=== PATIENT | female | born 2005 | race Caucasian/White ===

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

== ENCOUNTER 2024-01-19 08:22 | Emergency (ER) | payer OTHER, SELFPAY ==
[2024-01-19 08:37] VITALS: BP 153/72; PULSE 98; RESP 16; TEMP 36.8; O2SAT 96; BMI 60.2
--- NOTE | 2024-01-19 08:45 | EXP.UTC ---
Discharge Plan Disposition Patient Disposition: Home, Self-Care Condition: Good Prescriptions Prescriptions: New cefdinir 300 mg capsule 300 mg PO Q12H 10 Days Qty: 20 0RF cetirizine [Zyrtec] 10 mg tablet 10 mg PO DAILY Qty: 30 2RF No Action lisinopril 10 mg tablet 10 mg PO DAILY Qty: 90 1RF Wegovy 0.25 mg/0.5 mL pen injector 0.25 mg SQ WEEKLY Qty: 2 0RF Rx Instructions: administer weeks 1 through 4 of therapy Referrals Follow up/Referrals: Dereck Ramos DO [Primary Care Provider] - See instructions Activity Restrictions/Add. Instructions Additional Instructions/Restrictions: Take medication as prescribed. Follow up in a week with your primary care provider (PCP). Monitor blood pressure and take readings to your PCP at your visit in a week. Clinical Impressions Clinical Impression: Bilateral otitis media with spontaneous rupture of eardrum, Seasonal allergies Instructions Patient Instructions: DI for Middle Ear Infection-Adult, DI for Viral Upper Respiratory Infection -- Adult Print Language Print Language: Cambodian Discharge ED Provider: Anika Hendrickson [facility] General Stated complaint: sore throat, left ear pain Mode of Arrival: Ambulatory Source of Information: Patient Limitations: No Limitations Time Seen by Provider: 01/19/24 08:39 Description of Symptoms (Recalled from Triage Doc. by RN): Patient reports sore throat and left ear pain. HEENT Symptoms (Recalled from RN notes): Yes Resp Symptoms (Recalled from RN notes): No Skin Symptoms (Recalled from RN notes): No MS Symptoms (Recalled from RN notes): No Functional Status (Recalled from RN notes): wnl Related Data Previous Rx's ?Medication ?Instructions ?Recorded lisinopril 10 mg tablet 10 mg PO DAILY #90 tabs 09/10/23 semaglutide (weight loss) 0.25 0.25 mg (0.5 mL) SQ WEEKLY #2 mL 09/10/23 mg/0.5 mL subcutaneous pen injector (Wegovy) cefdinir 300 mg capsule 300 mg PO Q12H 10 days #20 caps 01/19/24 cetirizine 10 mg tablet (Zyrtec) 10 mg PO DAILY #30 tabs 01/19/24 Allergies Allergy/AdvReac Type Severity Reaction Status Date / Time No Known Allergies Allergy Verified 09/10/23 15:48 Worker's Comp Is this a Worker's Comp case?: No [facility] Disclaimer: The information contained in this section may have been updated after the patient was seen, as this information can be updated by other users. Medical History Obesity Hypothyroidism Surgical History History of tonsillectomy Social History Smoking Status: Never smoker alcohol intake: never substance use type: denies use current occupational status: other Travel in the last 8 weeks: None ROS Obtained: Yes All systems reviewed & no additional complaints except as documented Constitutional Constitutional: Reports system reviewed and no additional complaints, except as documented and Reports malaise Eyes Eyes: Reports system reviewed and no additional complaints, except as documented ENT Ears, Nose, Mouth, and Throat: Reports system reviewed and no additional complaints, except as documented, Reports ear discharge, Reports otalgia, Reports nasal congestion and Reports nasal discharge Cardiovascular Cardiovascular: Reports system reviewed and no additional complaints, except as documented Respiratory Respiratory: Reports system reviewed and no additional complaints, except as documented and Reports non-productive cough Gastrointestinal Gastrointestingal: Reports system reviewed and no additional complaints, except as documented Genitourinary Female Genitourinary: Reports system reviewed and no additional complaints, except as documented Musculoskeletal Musculoskeletal: Reports system reviewed and no additional complaints, except as documented Integumentary/Breasts Skin/Breast: Reports system reviewed and no additional complaints, except as documented Neurologic Neurologic: Reports system reviewed and no additional complaints, except as documented Endocrine Endocrine: Reports system reviewed and no additional complaints, except as documented Hematologic/Lymphatic Henatologic/Lymphatic: Reports system reviewed and no additional complaints, except as documented Allergic/Immunologic Allergic/Immunologic: Reports system reviewed and no additional complaints, except as documented Physical Exam General General appearance: alert and anxious Head Head exam: atraumatic and normocephalic Eye Eye exam: Present normal appearance ENT ENT exam: Present mucous membranes moist Expanded ENT Exam External ear exam: Present pain with movement TM/Canal exam: Right TM: canal tenderness and Bilateral TM: erythema, perforation and canal discharge (pus noted in both canals) Nasal speculum exam: Bilateral: purulent discharge Mouth exam: Present normal external inspection Teeth exam: Present normal inspection Throat exam: Present normal inspection Neck Neck exam: Present normal inspection Chest Chest inspection: Present normal inspection and symmetric chest wall rise Respiratory Respiratory exam: Present normal lung sounds bilaterally Cardiovascular Cardiovascular exam: Present normal heart sounds Abdominal Exam Abdominal exam: Present soft and normal bowel sounds Extremities Exam Extremities exam: Present normal inspection Back Exam Back exam: Present normal inspection Neurological Exam Neurological exam: Present alert and oriented X3 Psychiatric Psychiatric exam: Present normal affect and anxious Skin Skin exam: Present warm, dry and intact Lymphatic Lymphatic Findings: no adenopathy Medical Decision Making Medical Records Screening: Per USPSTF and CDC recommendations, given the prevalence of disease in our region, it is our hospital?s policy to screen for HIV and viral Hepatitis for all patients aged 18 and over and those with ongoing risk factors. Jose De Jesus Inquiry Pt receiving controlled substance: No Jose De Jesus was queried for this patient: No Vital Signs: 01/19/24 08:37 Temperature 98.3 F Temperature Source Oral Pulse Rate [Radial] 98 H Respiratory Rate 16 Blood Pressure [Right Arm] 153/72 H Blood Pressure Mean [Right Arm] 99 Blood Pressure Source [Right Arm] Automatic Cuff Blood Pressure Position [Right Arm] Sitting 02 Sat by Pulse Oximetry 96 Oxygen Delivery Method Room Air
[2024-01-19 08:55] VITALS: BP 153/72; PULSE 98; RESP 16; TEMP 36.8; O2SAT 96
== END 2024-01-19 08:56 | disposition home or self-care (01) ==
PROVIDERS: Emergency Provider Nurse Practitioner Family; PCP Internal Medicine
DX: H66.93 Otitis media, unspecified, bilateral (principal); H72.93 Unspecified perforation of tympanic membrane, bilateral; R07.0 Pain in throat
CPT/HCPCS: 99212; 99214; G0463

== ENCOUNTER 2024-07-22 16:16 | Outpatient (CLI) | payer OTHER, SELFPAY | END 2024-07-22 23:59 | disposition home or self-care (01) | LOC: LAB.DROPOF 16:16 | PROVIDERS: PCP Nurse Practitioner; Visit Provider Nurse Practitioner | DX: H65.01 Acute serous otitis media, right ear (principal); H74.01 Tympanosclerosis, right ear; H92.11 Otorrhea, right ear | CPT/HCPCS: 87070; 87077; 87102; 87186; 87206 ==

== ENCOUNTER 2024-10-06 16:17 | Emergency (ER) | payer OTHER, SELFPAY ==
[2024-10-06 16:28] VITALS: BP 141/96; PULSE 76; RESP 18; TEMP 36.9; O2SAT 100; BMI 58.1
--- NOTE | 2024-10-06 16:29 | HMH.EDGENADL ---
Discharge Plan Disposition Patient Disposition: Home, Self-Care Condition: Good Prescriptions Prescriptions: New ondansetron 4 mg tablet,disintegrating 4 mg PO Q6H PRN (Reason: nausea and vomiting) Qty: 10 0RF No Action ondansetron 4 mg tablet,disintegrating 4 mg PO Q8H PRN (Reason: nausea and vomiting) Qty: 7 0RF Referrals Follow up/Referrals: Provider,Debbie Test [Primary Care Provider, Unknown] - See instructions Activity Restrictions/Add. Instructions Additional Instructions/Restrictions: Please follow-up with your family physician, please take your medication as prescribed, recommend ibuprofen and Tylenol as needed for symptomatic relief, utilize Zofran as needed for nausea. Please return to the emergency department any worsening signs or symptoms. Clinical Impressions Clinical Impression: Diarrhea, Abdominal pain Instructions Patient Instructions: DI for Acute Abdominal Pain Print Language Print Language: Icelandic Discharge ED Provider: Osvaldo Hansen General Adult HPI <MARTÍNEZ Mobley - Last Filed: 10/06/24 17:42> General Chief complaint: Abdominal Pain Stated complaint: Abdominal Pain,nausea Time Seen by Provider: 10/06/24 16:24 Mode of Arrival: Ambulatory Limitations: No Limitations History of Present Illness HPI narrative: 19-year-old female presents to the emergency department with abdominal cramping, nausea, no vomiting, and some diarrhea for 6 days, diarrhea has been subsided since 10/03/2024, she has had formed stools, no hematuria, no melena no hematochezia, no hematemesis, no hematuria, no urinary type symptomatology, no fever no chills no chest pain no shortness of breath no cough congestion no sore throat, no vaginal symptomatology. 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 Onset (ago): day(s) Related Data Previous Rx's ?Medication ?Instructions ?Recorded ondansetron 4 mg disintegrating 4 mg PO Q8H PRN nausea and 10/05/24 tablet vomiting #7 tabs ondansetron 4 mg disintegrating 4 mg PO Q6H PRN nausea and 10/06/24 tablet vomiting #10 tabs Allergies Allergy/AdvReac Type Severity Reaction Status Date / Time No Known Allergies Allergy Verified 10/05/24 08:17 [facility] <MARTÍNEZ Mobley - Last Filed: 10/06/24 17:42> [facility] Disclaimer: The information contained in this section may have been updated after the patient was seen, as this information can be updated by other users. Medical History Otitis externa due to Pseudomonas aeruginosa Right ear Otitis externa of right ear Infection of right ear Drainage from right ear History of chronic ear drainage Obesity Hypothyroidism Surgical History History of tonsillectomy Family History Family/Other No significant family history Social History Smoking Status: Never smoker alcohol intake: never substance use type: denies use current occupational status: other Travel in the last 8 weeks?: None Have you lived/traveled outside US in past 30 days?: No Contact w/someone who lives/traveled outside US past 30 days?: No Exposure to someone with infectious disease in past 14 days?: No Do you have a fever (greater than 100.4 F or 38 C)?: No Have you tested positive for COVID-19?: No Exposed to someone with COVID-19 in past 14 days?: No Do you have a sore throat?: No Do you have a cough?: No Do you have any weakness?: No Do you have any diarrhea?: No Are you experiencing any unusual bleeding?: No Do you have any muscle aches/pain?: No Do you have any abdominal pain?: No Are you experiencing loss of taste or smell?: No Other Medical History Have you received the Pneumonia Vaccine: No <MARTÍNEZ Mobley - Last Filed: 10/06/24 17:42> ROS Obtained: Yes All systems reviewed & no additional complaints except as documented Physical Exam <MARTÍNEZ Mobley - Last Filed: 10/06/24 17:42> General General appearance: alert and in no apparent distress Head Head exam: atraumatic and normocephalic Eye Eye exam: Present PERRL and EOMI ENT ENT exam: Present mucous membranes moist Neck Neck exam: Present normal inspection Chest Chest inspection: Present normal inspection and symmetric chest wall rise Respiratory Respiratory exam: Present normal lung sounds bilaterally; Absent respiratory distress Cardiovascular Cardiovascular exam: Present regular rate and normal rhythm Abdominal Exam Abdominal exam: Present soft; Absent tenderness, guarding, rebound or rigidity Extremities Exam Extremities exam: Present normal inspection Neurological Exam Neurological exam: Present alert and oriented X3 Psychiatric Psychiatric exam: Present normal affect Skin Skin exam: Present warm and dry Medical Decision Making <MARTÍNEZ Mobley - Last Filed: 10/06/24 17:42> Medical Records Medical records reviewed: Yes I reviewed the patient's medical records. Screening: Per USPSTF and CDC recommendations, given the prevalence of disease in our region, it is our hospital?s policy to screen for HIV and viral Hepatitis for all patients aged 18 and over and those with ongoing risk factors. Jose De Jesus Inquiry Pt receiving controlled substance: No Jose De Jesus was queried for this patient: No Vital Signs: 10/06/24 16:28 10/06/24 17:01 10/06/24 17:31 Temperature 98.5 F Temperature Source Oral Pulse Rate 86 81 Pulse Rate [Right Brachial] 76 Respiratory Rate 18 Blood Pressure 123/63 104/87 L Blood Pressure [Right Arm] 141/96 H Blood Pressure Mean 83 90 Blood Pressure Mean [Right Arm] 111 Blood Pressure Source Blood Pressure Source [Right Arm] Automatic Cuff Blood Pressure Position Blood Pressure Position [Right Arm] Sitting 02 Sat by Pulse Oximetry 100 98 98 Oxygen Delivery Method Room Air 10/06/24 17:48 Temperature 98.4 F Temperature Source Oral Pulse Rate 77 Pulse Rate [Right Brachial] Respiratory Rate 18 Blood Pressure 104/87 L Blood Pressure [Right Arm] Blood Pressure Mean Blood Pressure Mean [Right Arm] Blood Pressure Source Automatic Cuff Blood Pressure Source [Right Arm] Blood Pressure Position Sitting Blood Pressure Position [Right Arm] 02 Sat by Pulse Oximetry Oxygen Delivery Method Room Air Lab Data Lab results reviewed: Yes I reviewed the patient's lab results. Lab Results 10/06/24 14:35: WBC 9.2, RBC 4.52, Hgb 13.9, Hct 40.2, MCV 88.9, MCH 30.8, MCHC 34.6, RDW 13.2, Plt Count 374, MPV 9.9, Neut % (Auto) 54.0, Lymph % (Auto) 36.9, Shoshone % (Auto) 6.9, Eos % (Auto) 1.0, Baso % (Auto) 0.8, Neut # (Auto) 4.9, Lymph # (Auto) 3.4, Shoshone # (Auto) 0.6, Eos # (Auto) 0.1, Baso # (Auto) 0.1, Sodium 139, Potassium 3.8, Chloride 105, Carbon Dioxide 25, Anion Gap 12.8, BUN 9, Creatinine 0.70, Estimated Creat Clear 120, Estimated GFR 107, Est GFR ( Amer) 129, Glucose 100, Calcium 9.3, Total Bilirubin 1.4 H, AST 51 H, ALT 53, Alkaline Phosphatase 69, Total Protein 8.8 H, Albumin 5.1 H, Globulin 3.7 H, Albumin/Globulin Ratio 1.4, Lipase 56 10/06/24 16:20: Urine Color Yellow, Urine Appearance Clear, Urine pH 6.0, Ur Specific Cham[place] >= 1.030, Urine Protein Negative, Urine Glucose (UA) Negative, Urine Ketones Negative, Urine Blood Negative, Urine Nitrate Negative, Urine Bilirubin Negative, Urine Urobilinogen 0.2, Ur Leukocyte Esterase Negative, Urine RBC Occasional, Urine WBC Occasional, Ur Squamous Epith Cells 10-20, Urine Bacteria Trace, Urine HCG, Qual Negative 10/06/24 16:55: Lactate 0.9 10/06/24 14:35 10/06/24 14:35 Orders (Tests/Meds): ED MEDICATIONS Discontinued Medications Generic Name Dose Route Start Last Admin Trade Name Naifq PRN Reason Stop Dose Admin Ondansetron HCl 4 mg 10/06/24 16:27 10/06/24 16:37 Ondansetron 4mg/2ml Vial IV 10/06/24 16:28 4 mg ONCE ONE Administration ORDERS Category Date Time Status Complete Blood Count Auto Diff Stat Lab 10/06/24 14:35 Completed Comprehensive Metabolic Panel Stat Lab 10/06/24 14:35 Completed HIV Combo Stat Lab 10/06/24 14:35 Received Hepatitis C Ab Qual. W/ RFX Stat Lab 10/06/24 14:35 Received Lactic Acid Stat Lab 10/06/24 16:55 Completed Lipase Stat Lab 10/06/24 14:35 Completed Urinalysis and Microscopic Stat Lab 10/06/24 16:20 Completed Urine , HCG Qual. Stat Lab 10/06/24 16:20 Completed Medical Decision Narrative: 19-year-old female presents to the emergency department with abdominal cramping, nausea no vomiting and diarrhea that is since subsided, see HPI for detail past medical history, differential diagnosis include but not limited to, gastroenteritis, acute UTI, ileus, physiologic , gastritis, GERD, constipation, musculoskeletal pain among others. I discussed patient case with attending physician Dr. Hansen Will obtain basic laboratory studies lactic acid level lipase, UA, hCG qualitative, will give 4 mg IV Zofran for nausea Urine hCG is negative, negative leukocyte esterase, occasional RBCs, WBCs, 10-20 epithelial cells, trace bacteria, no nitrites CBC unremarkable CMP is notable for minimal bilirubin elevation 1.4, AST is minimally elevated 51, lipase and lactic acid level within normal limits otherwise unremarkable CMP I discussed the results with the patient at the bedside, patient most likely had gastroenteritis/other diarrheal illness, diarrhea is improved, patient has remained hemodynamically stable, afebrile, stools have returned to baseline, will prescribe p.o. Zofran 4 mg as needed for nausea, unremarkable/benign exam normal exam this time, no need for imaging, patient was given strict ED return precautions, recommend ibuprofen Tylenol, good p.o. intake, patient voiced understanding agree with current treatment plan/discharge plan will follow-up with PCP. <Osvaldo Hansen MD - Last Filed: 10/06/24 17:57> Vital Signs: 10/06/24 16:28 10/06/24 17:01 10/06/24 17:31 Temperature 98.5 F Temperature Source Oral Pulse Rate 86 81 Pulse Rate [Right Brachial] 76 Respiratory Rate 18 Blood Pressure 123/63 104/87 L Blood Pressure [Right Arm] 141/96 H Blood Pressure Mean 83 90 Blood Pressure Mean [Right Arm] 111 Blood Pressure Source Blood Pressure Source [Right Arm] Automatic Cuff Blood Pressure Position Blood Pressure Position [Right Arm] Sitting 02 Sat by Pulse Oximetry 100 98 98 Oxygen Delivery Method Room Air 10/06/24 17:48 Temperature 98.4 F Temperature Source Oral Pulse Rate 77 Pulse Rate [Right Brachial] Respiratory Rate 18 Blood Pressure 104/87 L Blood Pressure [Right Arm] Blood Pressure Mean Blood Pressure Mean [Right Arm] Blood Pressure Source Automatic Cuff Blood Pressure Source [Right Arm] Blood Pressure Position Sitting Blood Pressure Position [Right Arm] 02 Sat by Pulse Oximetry Oxygen Delivery Method Room Air Lab Data Lab Results 10/06/24 14:35: WBC 9.2, RBC 4.52, Hgb 13.9, Hct 40.2, MCV 88.9, MCH 30.8, MCHC 34.6, RDW 13.2, Plt Count 374, MPV 9.9, Neut % (Auto) 54.0, Lymph % (Auto) 36.9, Shoshone % (Auto) 6.9, Eos % (Auto) 1.0, Baso % (Auto) 0.8, Neut # (Auto) 4.9, Lymph # (Auto) 3.4, Shoshone # (Auto) 0.6, Eos # (Auto) 0.1, Baso # (Auto) 0.1, Sodium 139, Potassium 3.8, Chloride 105, Carbon Dioxide 25, Anion Gap 12.8, BUN 9, Creatinine 0.70, Estimated Creat Clear 120, Estimated GFR 107, Est GFR ( Amer) 129, Glucose 100, Calcium 9.3, Total Bilirubin 1.4 H, AST 51 H, ALT 53, Alkaline Phosphatase 69, Total Protein 8.8 H, Albumin 5.1 H, Globulin 3.7 H, Albumin/Globulin Ratio 1.4, Lipase 56 10/06/24 16:20: Urine Color Yellow, Urine Appearance Clear, Urine pH 6.0, Ur Specific [place] >= 1.030, Urine Protein Negative, Urine Glucose (UA) Negative, Urine Ketones Negative, Urine Blood Negative, Urine Nitrate Negative, Urine Bilirubin Negative, Urine Urobilinogen 0.2, Ur Leukocyte Esterase Negative, Urine RBC Occasional, Urine WBC Occasional, Ur Squamous Epith Cells 10-20, Urine Bacteria Trace, Urine HCG, Qual Negative 10/06/24 16:55: Lactate 0.9 Orders (Tests/Meds): ED MEDICATIONS Discontinued Medications Generic Name Dose Route Start Last Admin Trade Name Freq PRN Reason Stop Dose Admin Ondansetron HCl 4 mg 10/06/24 16:27 10/06/24 16:37 Ondansetron 4mg/2ml Vial IV 10/06/24 16:28 4 mg ONCE ONE Administration ORDERS Category Date Time Status Complete Blood Count Auto Diff Stat Lab 10/06/24 14:35 Completed Comprehensive Metabolic Panel Stat Lab 10/06/24 14:35 Completed HIV Combo Stat Lab 10/06/24 14:35 Received Hepatitis C Ab Qual. W/ RFX Stat Lab 10/06/24 14:35 Received Lactic Acid Stat Lab 10/06/24 16:55 Completed Lipase Stat Lab 10/06/24 14:35 Completed Urinalysis and Microscopic Stat Lab 10/06/24 16:20 Completed Urine , HCG Qual. Stat Lab 10/06/24 16:20 Completed Medical Decision Narrative: 19-year-old female presents to the emergency department with abdominal cramping, nausea no vomiting and diarrhea that is since subsided, see HPI for detail past medical history, differential diagnosis include but not limited to, gastroenteritis, acute UTI, ileus, physiologic , gastritis, GERD, constipation, musculoskeletal pain among others. I discussed patient case with attending physician Dr. Hansen Will obtain basic laboratory studies lactic acid level lipase, UA, hCG qualitative, will give 4 mg IV Zofran for nausea Urine hCG is negative, negative leukocyte esterase, occasional RBCs, WBCs, 10-20 epithelial cells, trace bacteria, no nitrites CBC unremarkable CMP is notable for minimal bilirubin elevation 1.4, AST is minimally elevated 51, lipase and lactic acid level within normal limits otherwise unremarkable CMP I discussed the results with the patient at the bedside, patient most likely had gastroenteritis/other diarrheal illness, diarrhea is improved, patient has remained hemodynamically stable, afebrile, stools have returned to baseline, will prescribe p.o. Zofran 4 mg as needed for nausea, unremarkable/benign exam normal exam this time, no need for imaging, patient was given strict ED return precautions, recommend ibuprofen Tylenol, good p.o. intake, patient voiced understanding agree with current treatment plan/discharge plan will follow-up with PCP. I was consulted by the [facility], and we discussed the complexity of the problems being addressed. I approved the treatment and management plan for this patient's care in the Emergency Department, thus performing a substantive portion of the medical decision making. Osvaldo Hansen MD Critical Care <MARTÍNEZ Mobley - Last Filed: 10/06/24 17:42> Critical Care Time Critical Care Time: No
[2024-10-06 16:34] LABS: Microscopic, Urine URINE MICROSCOPIC (MICROSCOPIC)
[2024-10-06] MEDS: ONDANSETRON 4MG/2ML VIAL 4 MG IV (16:37)
[2024-10-06 16:39] LABS: Appearance,Urine CLEAR (Clear); Bilirubin,Urine Negative (Negative); Blood, Urine Negative (Negative); Color,Urine YELLOW (Yellow); Glucose,Urine (UA) Negative (Negative); Ketones,Urine Negative (Negative); Leukocyte Esterase,Urine Negative (Negative); Nitrate,Urine Negative (Negative); Protein,Urine Negative (Negative); Specific Gravity, Urine >= 1.030 (1.005-1.030); Urobilinogen,Urine 0.2 EU/dl (0.2)
[2024-10-06 16:44] LABS: Urine Pregnancy, HCG Qual. Negative (Negative)
[2024-10-06 16:55] LABS: Bacteria,Urine Trace /lpf; RBC,Urine Occasional #/hpf (0-3); WBC,Urine Occasional #/hpf (0-3)
[2024-10-06 16:59] LABS: Basophils # 0.1 K/mm3 (0-0.2); Basophils % 0.8 % (0.1-2.0); Eosinophils # 0.1 Kmm3 (0.0-0.4); Hematocrit 40.2 % (37.0-47.0); Hemoglobin 13.9 g/dL (12.2-16.2); Immature Granulocytes # 0.04 10^3uL; Immature Granulocytes % 0.4 %; Lymphocytes # 3.4 K/mm3 (0.7-4.5); Lymphocytes % 36.9 % (10-50); Mean Corpuscular HGB Conc 34.6 g/dL (31.8-35.4); Mean Corpuscular Hemoglobin 30.8 pg (27.0-31.2); Mean Corpuscular Volume 88.9 fl (81-99); Mean Platelet Volume 9.9 fl (7.4-10.4); Monocytes # 0.6 K/mm3 (0.1-1.0); Monocytes % 6.9 % (1.7-9.3); Neutrophils # 4.9 K/mm3 (1.8-7.8); Nucleated Red Blood Cells # 0 10^3/uL; Nucleated Red Blood Cells % 0 %; Platelet Count 374 K/mm3 (142-424); Red Blood Count 4.52 M/mm3 (4.20-5.40); Red Cell Distribution Width 13.2 % (11.5-17.5); Red Cell Distribution Width-SD 43.2 fL; White Blood Count 9.2 K/mm3 (4.5-13.0)
[2024-10-06 17:01] VITALS: BP 123/63; PULSE 86; O2SAT 98
[2024-10-06 17:14] LABS: Albumin Level 5.1 g/dl (3.5-5.0); Chloride 105 mmol/L (98-107); Potassium 3.8 mmoL/L (3.5-5.1); Sodium 139 mmol/L (136-145)
[2024-10-06 17:16] LABS: Lactic Acid 0.9 mmol/L (0.7-2.1)
[2024-10-06 17:16] LABS: Blood Urea Nitrogen 9 mg/dl (7-17); Creatinine Clearance Estimated 120 mL/min (50-200); Estimated Glomerular Filt Rate 107 ml/min (>60); GFR (African American) 129 ML/MIN (>60)
[2024-10-06 17:17] LABS: Alanine Aminotransferase 53 U/L (12-78); Albumin/Globulin Ratio 1.4 (1.1-1.8); Alkaline Phosphatase 69 U/L (38-126); Anion Gap 12.8 mEq/L (5-15); Aspartate Amino Transferase 51 U/L (14-36); Bilirubin,Total 1.4 mg/dl (0.2-1.3); Calcium 9.3 mg/dl (8.4-10.2); Carbon Dioxide 25 mmol/L (22.0-30.0); Globulin 3.7 g/dL (1.3-3.2); Glucose 100 mg/dl (74-100); Lipase 56 U/L (23-300); Total Protein,Serum 8.8 g/dl (6.3-8.2)
[2024-10-06 17:31] VITALS: BP 104/87; PULSE 81; O2SAT 98
[2024-10-06 17:48] VITALS: BP 104/87; PULSE 77; RESP 18; TEMP 36.9; O2SAT 99
[2024-10-06 18:31] LABS: HIV Combo NEGATIVE (Negative)
[2024-10-06 18:39] LABS: Hepatitis C Ab Qual. W/ RFX NEGATIVE (Negative)
== END 2024-10-06 17:49 | disposition home or self-care (01) ==
PROVIDERS: Physician Assistant; Emergency Provider Emergency Medicine
DX: R10.9 Unspecified abdominal pain (principal); R11.0 Nausea; R19.7 Diarrhea, unspecified; Z11.59 Encounter for screening for other viral diseases; Z11.4 Encounter for screening for human immunodeficiency virus [HIV]
CPT/HCPCS: 80053; 80074; 81001; 81025; 83605; 83690; 85025; 87389; 96374; 99284; J2405

== ENCOUNTER 2024-10-10 08:59 | Outpatient (CLI) | payer OTHER, SELFPAY ==
--- NOTE | 2024-10-10 09:00 | US_ITS ---
FINAL REPORT TECHNIQUE: Sonographic images of the right upper quadrant were obtained. CLINICAL HISTORY: ruq pain COMPARISON: None FINDINGS: PANCREAS: Unremarkable. LIVER: Somewhat limited evaluation, but there is fatty infiltration. No focal hepatic lesion. No intrahepatic biliary ductal dilatation. GALLBLADDER: No gallstones. No gallbladder wall thickening or pericholecystic fluid. COMMON DUCT: 3 mm. Normal for age. RIGHT KIDNEY: The right kidney measures 10.5 cm. There is no hydronephrosis, mass, or stone. FREE FLUID: None. IMPRESSION: Fatty liver. Otherwise, unremarkable ultrasound of the right upper quadrant. Reviewed, Interpreted and Dictated by Susie Huerta MD Transcribed by Natalie Kiser Authenticated and [facility]
== END 2024-10-10 23:59 | disposition home or self-care (01) ==
LOC: RAD 09:00
PROVIDERS: PCP Family Medicine; Visit Provider Family Medicine
DX: K76.0 Fatty (change of) liver, not elsewhere classified (principal); R10.11 Right upper quadrant pain
CPT/HCPCS: 76705

== ENCOUNTER 2024-11-16 10:42 | Emergency (ER) | payer OTHER, SELFPAY ==
[2024-11-16 10:50] VITALS: BP 140/89; PULSE 89; RESP 19; O2SAT 98
--- NOTE | 2024-11-16 10:51 | ECG_ITS ---
APPROVED REPORT Exam: Resting ECG HR:85 bpm ECG Measurements Heart Rate 85 AXES DE 164 P 29 QRSd 105 QRS 44 QT 356 T 11 QTc 398 Conclusion SINUS RHYTHM NORMAL ECG Electronically signed by : JAKE STEVENS, 11/17/2024 18:00:18
[2024-11-16 10:53] VITALS: BP 140/89; PULSE 86; RESP 19; TEMP 36.8; O2SAT 98; BMI 54.8
[2024-11-16 11:01] VITALS: BP 120/76; PULSE 85; RESP 19; O2SAT 96
[2024-11-16 11:01] LABS: Microscopic, Urine URINE MICROSCOPIC (MICROSCOPIC)
[2024-11-16 11:06] LABS: Bilirubin,Urine Negative (Negative); Color,Urine YELLOW (Yellow); Glucose,Urine (UA) Negative (Negative); Ketones,Urine Negative (Negative); Leukocyte Esterase,Urine Negative (Negative); PH,Urine 6.5 (5.0-8.5); Protein,Urine Negative (Negative); Specific Gravity, Urine 1.015 (1.005-1.030); Urobilinogen,Urine 0.2 EU/dl (0.2)
--- NOTE | 2024-11-16 11:07 | ED_ITS ---
Discharge Plan Disposition Patient Disposition: Home, Self-Care Prescriptions Prescriptions: New amoxicillin-pot clavulanate 875-125 mg tablet 1 tab PO BID 7 Days Qty: 14 0RF Referrals Follow up/Referrals: Fern Mike APRN [Primary Care Provider, Family Practice] - See instructions Activity Restrictions/Add. Instructions Additional Instructions/Restrictions: At this time it was felt you are safe to be discharged home. If new or worsening symptoms please do not hesitate to return the emergency department. I suspect your dizziness is from your ear infection on the right. Please take yo ur medication as prescribed and follow-up with your family doctor next week to make sure things are headed in the right direction. Clinical Impressions Clinical Impression: Otitis media, Disequilibrium Print Language Print Language: Guyanese Discharge ED Provider: Celestine Duke General Adult HPI General Chief complaint: Weakness Stated complaint: Dizzy and Lightheadedness Time Seen by Provider: 11/16/24 10:47 Mode of Arrival: Ambulatory Source of Information: Patient Description of Symptoms (Recalled from ER Triage Doc. by RN): Patient presents to ED from home with c/o generalized weakness and dizziness. Reports symptoms started yesterday. Patient denies chest pain, denies SOA. History of Present Illness HPI narrative: Patient is a 19-year-old female with no pertinent past medical history presents emergency department for evaluation of dizziness. Onset was acute, after she cleaned her room and took a nap. It is worse with tucking her chin. Otherwise she has no acute complaints no headache no visual changes no shortness of breath no vomiting no diarrhea no abdominal pain no chest pain. No heat exposure or exposure to noxious chemicals while cleaning her room Please note that above description of symptoms, in this electronic medical record under categorization of recalled from ER triage doctor by RN are reflective of an initial nursing assessment, however, is not reflective of my full history and physical exam that was personally taken and clarified. Consequentially, this preceding description of symptoms, which may include the patient's categorized chief complaint in the EMR, do not reflect my personal clinical impression, and the ultimate description of history of present illness and patient stated complaints should be deferred to this section of the note. Unless stated otherwise or congruent with this section of the note, additional signs, symptoms, or incongruence should be interpreted as inaccurate with my clinical impression. Related Data Previous Rx's ?Medication ?Instructions ?Recorded amoxicillin 875 mg-potassium 1 tab PO BID otitis media 7 days 11/16/24 clavulanate 125 mg tablet #14 tabs Allergies Allergy/AdvReac Type Severity Reaction Status Date / Time No Known Allergies Allergy Verified 10/22/24 16:00 [facility] Disclaimer: The information contained in this section may have been updated after the patient was seen, as this information can be updated by other users. Medical History Otitis externa due to Pseudomonas aeruginosa Right ear Otitis externa of right ear Infection of right ear Drainage from right ear History of chronic ear drainage Obesity Hypothyroidism Surgical History History of tonsillectomy Family History Family/Other No significant family history Social History Smoking Status: Never smoker alcohol intake: never substance use type: denies use current occupational status: other Travel in the last 8 weeks?: None Have you lived/traveled outside [place] in past 30 days?: No Contact w/someone who lives/traveled outside [place] past 30 days?: No Exposure to someone with infectious disease in past 14 days?: No Do you have a fever (greater than 100.4 F or 38 C)?: No Have you tested positive for COVID-19?: No Exposed to someone with COVID-19 in past 14 days?: No Do you have a sore throat?: No Do you have a cough?: No Do you have any weakness?: No Do you have any diarrhea?: No Are you experiencing any unusual bleeding?: No Do you have any muscle aches/pain?: No Do you have any abdominal pain?: No Are you experiencing loss of taste or smell?: No Other Medical History Have you received the Pneumonia Vaccine: No ROS Obtained: Yes Systems reviewed as appropriate & no additional complaints except as documented Physical Exam General General appearance: alert and in no apparent distress Head Head exam: atraumatic and normocephalic Eye Eye exam: Present PERRL and EOMI ENT ENT exam: Present mucous membranes moist; Absent TM's normal bilaterally (Purule nt middle ear effusion on the right) Neck Neck exam: Present normal inspection Chest Chest inspection: Present normal inspection and symmetric chest wall rise Respiratory Respiratory exam: Present normal lung sounds bilaterally; Absent respiratory distress Cardiovascular Cardiovascular exam: Present regular rate and normal rhythm Abdominal Exam Abdominal exam: Present soft; Absent tenderness Extremities Exam Extremities exam: Present normal inspection Neurological Exam Neurological exam: Present alert and CN II-XII intact; Absent motor sensory deficit Psychiatric Psychiatric exam: Present normal affect Skin Skin exam: Present warm and dry Medical Decision Making Medical Records Screening: Per USPSTF and CDC recommendations, given the prevalence of disease in our region, it is our hospital?s policy to screen for HIV and viral Hepatitis for all patients aged 18 and over and those with ongoing risk factors. Jose De Jesus Inquiry Pt receiving controlled substance: No Vital Signs: 11/16/24 10:50 11/16/24 10:53 11/16/24 11:01 Temperature 98.2 F Temperature Source Oral Pulse Rate 89 85 Pulse Rate [Left] 86 Pulse Rate [Orthostatic Lying] Pulse Rate [Orthostatic Sitting] Pulse Rate [Orthostatic Standing] Respiratory Rate 19 19 19 Blood Pressure 140/89 120/76 Blood Pressure [Orthostatic Lying] Blood Pressure [Orthostatic Sitting] Blood Pressure [Orthostatic Standing] Blood Pressure [Right Arm] 140/89 Blood Pressure Mean 106 90 Blood Pressure Mean [Right Arm] 106 Blood Pressure Source [Right Arm] Automatic Cuff Blood Pressure Position [Right Arm] Sitting 02 Sat by Pulse Oximetry 98 98 96 Oxygen Delivery Method Room Air Room Air Room Air 11/16/24 11:12 Temperature Temperature Source Pulse Rate Pulse Rate [Left] Pulse Rate [Orthostatic Lying] 77 Pulse Rate [Orthostatic Sitting] 67 Pulse Rate [Orthostatic Standing] 86 Respiratory Rate Blood Pressure Blood Pressure [Orthostatic Lying] 132/80 Blood Pressure [Orthostatic Sitting] 114/75 Blood Pressure [Orthostatic Standing] 125/85 Blood Pressure [Right Arm] Blood Pressure Mean Blood Pressure Mean [Right Arm] Blood Pressure Source [Right Arm] Blood Pressure Position [Right Arm] 02 Sat by Pulse Oximetry Oxygen Delivery Method Lab Data Lab Results 11/16/24 10:46: Urine Color Yellow, Urine Appearance Clear, Urine pH 6.5, Ur Specific Alvin 1.015, Urine Protein Negative, Urine Glucose (UA) Negative, Urine Ketones Negative, Urine Blood Negative, Urine Nitrate Negative, Urine Bilirubin Negative, Urine Urobilinogen 0.2, Ur Leukocyte Esterase Negative, Uri ne RBC None, Urine WBC None, Ur Squamous Epith Cells 10-20, Urine Bacteria 1+, Urine HCG, Qual Negative Orders (Tests/Meds): ED MEDICATIONS Discontinued Medications Generic Name Dose Route Start Last Admin Trade Name Noman PRN Reason Stop Dose Admin Amoxicillin/Clavulanate Potassium 1 each 11/16/24 11:10 11/16/24 11:43 Amoxicillin/Clavulanate Potassium 875/125mg Tablet PO 11/16/24 11:11 1 each ONCE ONE Administration ORDERS Category Date Time Status UA [Urinalysis and Microscopic] Stat Lab 11/16/24 10:46 Completed Urine , HCG Qual. Stat Lab 11/16/24 10:46 Completed EKG Request [ECG Request] Stat Y 11/16/24 11:06 Ordered ECG Data Tracing #1: Independently inter by me rate is 85, rhythm is regular, axis is normal, no ST elevation in anatomical contiguous leads no evidence of type II Brugada's, QTc 398, no dagger Q waves in the lateral leads no high degree AV block no evidence of delta wave. Medical Decision Narrative: In summary patient is a 19-year-old female past medical history of scrota above who presents emergency department for evaluation of dizziness. Patient is hemodynamically stable nontoxic-appearing upon arrival, afebrile. Clinically patient has right-sided otitis media although she does not have severe pain I would expect it to cause disequilibrium. Given explainable cause limited workup will be conducted with a EKG, urine test, orthostatic vital signs. Broad workup with hematologic labs and intracranial imaging was considered but will be deferred at this time. Initial inventions include Augmentin. EKG unconcerning. Orthostatics nonactionable, urine test negative. Given this patient is appropriate for discharge at this time and will follow-up on an outpatient basis was given return precautions. Critical Care Critical Care Time Critical Care Time: No
[2024-11-16 11:12] VITALS: BP 114/75; BP 125/85; BP 132/80; PULSE 67; PULSE 77; PULSE 86
[2024-11-16 11:15] LABS: Bacteria,Urine 1+ /lpf
[2024-11-16 11:16] LABS: Urine Pregnancy, HCG Qual. Negative (Negative)
[2024-11-16] MEDS: AMOXICILLIN/CLAVULANATE POTASSIUM 875/125MG TABLET 1 EACH PO (11:43)
[2024-11-16 11:50] VITALS: BP 118/69; PULSE 73; RESP 16; TEMP 37; O2SAT 97
== END 2024-11-16 11:54 | disposition home or self-care (01) ==
PROVIDERS: Emergency Provider Emergency Medicine; PCP Family Medicine
DX: H66.91 Otitis media, unspecified, right ear (principal); R42 Dizziness and giddiness
CPT/HCPCS: 81001; 81025; 93005; 99283